=== PATIENT | male | born 1945 | race African-American/Black ===

== ENCOUNTER → 2018-11-10 | Outpatient (CLI) | payer OTHER ==
[~2018-11-10] VITALS: Ht 180.3 cm; Wt 88.0 kg
[~2018-11-10] MED LIST: ASPIRIN EC81 M1 PO; CRESTOR20 MG PO; EFFIENT10 MG PO; GABAPENTIN100 MG PO; GLUCOPHAGE500 MG PO; LIPITOR80 MG PO; MECLIZINE 25 MG25 M1 PO; NITROGLYCERIN0.4 MG; PROSCAR 5MG TABL5 MG PO; STOOL SOFTENER1 EAC2 PO; VITAMINC500 PO
[2018-11-10 08:05] VITALS: BP 128/70
[2018-11-10 08:15] LABS: HEMATOCRIT 44.6 % (42.0-52.0); HEMOGLOBIN 14.6 gm/dL (14.0-18.0); MCH 25.8 pg (26.0-34.0); MCHC 32.7 g/dL (28.0-37.0); MCV 78.9 fL (80.0-100.0); MPV 8.5 fl. (7.2-11.1); RBC 5.65 mil/uL (4.50-6.00); WBC 5.9 thou/uL (4.0-11.0)
[2018-11-10 08:21] LABS: ANION GAP 7 mmol/L (7-16); BUN 12 mg/dL (7-18); CALCIUM 8.7 mg/dL (8.5-10.1); CHLORIDE 105 mmol/L (98-107); CO2 26 mmol/L (21-32); CREATININE 1.3 mg/dL (0.6-1.3); GLUCOSE 116 mg/dL (70-99); POTASSIUM 4.1 mmol/L (3.5-5.1); SODIUM 138 mmol/L (136-145)
[2018-11-10 08:23] LABS: APTT 26.4 Seconds (25.0-31.3); PROTIME 10.4 Seconds (9.20-11.50)
[2018-11-10 08:25] LABS: ALBUMIN 3.6 g/dL (3.4-5.0); ALKALINE PHOSPHATASE 67 U/L (46-116); CHOLESTEROL 129 mg/dL (<200); HDL CHOLESTEROL 50 mg/dL (>40); LDL CHOLESTEROL 72 mg/dL (<100); SERUM ASSESSMENT Clear; SGOT 24 U/L (15-37); SGPT 23 U/L (30-65); TC:HDL 2.6 Ratio (Not establshd); TOTAL BILIRUBIN 0.6 mg/dL (<0.1-1.0); TOTAL PROTEIN 7.7 g/dL (6.4-8.2); TRIGLYCERIDE 36 mg/dL (<150); VLDL 7 mg/dL (<40)
--- NOTE | 2018-11-10 09:57 | EKG ---
[place] [address] ELECTROCARDIOGRAM REPORT Name: LANCE PARRISH Room: [facility]#: [id number] Admission: 11/10/18 Attend Phys: Cooper Tay MD, Discharge: Date of : 41 Report #: [id number] THIS REPORT FOR: //name// [facility] Test Date: 2018-11-10 Test Time: 08:54:33 Pat Name: LANCE PARRISH Department: Room: Gender: M Vehicle Assembly Inspector: BEKAH : 1945 Requested By: Cooper Tay Order Number: [id number] Rafa MD: David Dove Measurements Intervals [place] Rate: 56 P: 46 AL: 183 QRS: 19 QRSD: 102 T: 22 QT: 467 QTc: 451 Interpretive Statements Sinus rhythm Probable septal infarct, old Compared to ECG 04/10/2011 08:22:53 no change Electronically Signed On 11-10-2018 9:57:01 DEXIGRAPH OPERATOR by David Dove [email or web address] <ELECTRONICALLY SIGNED> By: David Dove MD, [facility] 11/10/18 0957 D: [id number] 3 David Dove MD, FACC /EPI
[2018-11-10 10:28] VITALS: BP 116/66
[2018-11-10 11:25] VITALS: BP 121/78
[2018-11-10 12:14] VITALS: BP 120/72
--- NOTE | 2018-11-10 12:42 | H ---
[address] [address] HISTORY AND PHYSICAL Name: LANCE PARRISH Room: [facility]#: [id number] Admission: 11/10/18 Attend Phys: Cooper Tay MD, Discharge: Date of : 41 Report #: [id number] THIS REPORT FOR: //name// CC: Cooper Tay Shavonne Ashby DATE OF SERVICE: 11/10/2018 HISTORY OF PRESENT ILLNESS: The patient is a very pleasant 73-year-old male with a history of coronary artery disease status post remote stenting of the LAD in 2005. Recently, he has noted dyspnea on exertion without concomitant chest discomfort. He maintains a relatively active lifestyle for his 73 years of age. He denies palpitations or dizziness. He is compliant with antiplatelet therapy with aspirin and atorvastatin as lipid-lowering therapy, 80 mg daily. PAST MEDICAL HISTORY: Remarkable for hypercholesterolemia. SOCIAL HISTORY: The patient is a nonsmoker. He is . PHYSICAL EXAMINATION: GENERAL: Demonstrates an acutely distressed elderly male. VITAL SIGNS: Blood pressure is 150/70, pulse rate is 74, respirations are 18 per minute. NECK: Jugular venous pressure is normal. CHEST: Clear. CARDIAC: Reveals normal first and second heart sounds with a soft systolic murmur. ABDOMEN: Soft. EXTREMITIES: Without edema with intact femoral, pedal and radial pulses. Recent stress echocardiogram revealed inferior hypokinesis, which was worsened after stress. IMPRESSION: 1. Coronary artery disease, status post remote stenting of the left anterior descending. 2. Abnormal stress echocardiogram. 3. Status post prior stenting of the left anterior descending. 4. Hypercholesterolemia. 5. [place] [address] HISTORY AND PHYSICAL Name: LANCE PARRISH Room: [facility]#: [id number] Admission: 11/10/18 Attend Phys: Cooper Tay MD, Discharge: Date of : 41 Report #: [id number] RECOMMENDATIONS: Given the aforementioned clinical scenario, I would recommend proceeding with cardiac catheterization to document the magnitude of coronary artery disease in the context of known coronary artery disease and recently abnormal stress echocardiogram. The procedure and risks have been discussed with the patient. <ELECTRONICALLY SIGNED> By: Cooper Tay MD, FACC 11/10/18 1242 1047 1055Jojohanna Tay MD, FACC /nt
--- NOTE | 2018-11-10 15:15 | CARD ---
[address] [address] CARDIAC CATH REPORT Name: LANCE PARRISH [id number] Admission: 11/10/18 Attend Phys: Cooper Tay MD, Discharge: Date of : 41 Report #: [id number] THIS REPORT FOR: //name// APPROVED REPORT Study performed: 11/10/2018 08:31:53 Patient Details Patient Status: Out-Patient Room #: The patient is a 73 year-old male Event Personnel Cooper Tay Office Worker, Maria Isabel Saldivar RN Journeyman Pipe Fitter, Ramone Hidalgo (R) Monitor, Adriana GuajardoIS Scrub Procedures Performed Left Heart Cath w/or w/o Coronaries, FFR Indication Positive stress test Risk Factors Hypercholesterolemia, Hypertension Previous Procedures/Diagnoses Previous PCI Procedure Narrative The patient was brought electively to the Cardiac Catheterization Laboratory and was prepped and draped in a sterile manner. The right femoral was infiltrated with 2% Lidocaine subcutaneous anesthesia. A Livingston 6 FR sheath was inserted into the right femoral artery. Coronary angiography was performed using coronary diagnostic catheters. The right coronary system was accessed and visualized with a Diagnostic JR 4 catheter. The left coronary system was accessed and visualized with a Diagnostic JL 5 catheter. The left ventricle was accessed and visualized with a Diagnostic Straight Pig catheter. Left ventricular/Aortic Valve gradient assessed via catheter pullback. Left ventriculogram was [facility] [address] [place] [address] CARDIAC CATH REPORT Name: LANCE PARRISH Room: [facility]#: [id number] Admission: 11/10/18 Attend Phys: Cooper Tay MD, Discharge: Date of : 41 Report #: [id number] performed in [place] projection. Pre-demployment femoral angiogram was performed . Closure device was deployed with a 6 Fr MynxGrip 6/7F. The patient tolerated the procedure well and there were no complications associated with the procedure. There was no hematoma. Intraoperative Conscious Sedation Sedation start time: 9:33 Case end Time: 10:16 Fentanyl 25 mcg Versed 2 mg Fluoro Time: 6.6 minutes Dose: DAP 50301 cGycm2 1181 mGy Contrast Type and Amount: Visipaque 220 ml Coronary Angiography The patient's coronary anatomy is right dominant. Diagnostic Cath Left Main 75% distal narrowing LAD 75% proximal LAD in-stent restenosis Circumflex 60% ostial and 40% mid vessel narrowing Right Coronary 70% very proximal narrowing and total occlusion at the acute margin with [id number] collaterals filling the distal right coronary artery Left Ventriculography The left ventricle is normal in size with normal contractility. The left ventricular ejection fraction is estimated to be 65%. Left ventricular wall motion abnormalities are not present. There is no mitral insufficiency. IVUS Anticoagulation was achieved with Heparin. Fractional Flow Strawberry was performed on the left main coronary artery, proximal left anterior descending artery segment vessel. A FFR wire was used. IVUS Findings 0.79 was the FFR measurement for the LM and LAD in series; value just distal to the left main and proximal to the LAD stenosis was 0.86 [place] [address] CARDIAC CATH REPORT Name: LANCE PARRISH Room: [facility]#: [id number] Admission: 11/10/18 Attend Phys: Cooper Tay MD, Discharge: Date of : 41 Report #: [id number] The aortic pressure is 124/61 mmHg with a mean of 86 mmHg. The left ventricular pressure is 127/4 mmHg with a mean of mmHg. The left ventricular end diastolic pressure is 7 mmHg. There was no gradient across the aortic valve upon pullback. PCI Technique Lesion Patient was preloaded with Heparin IV 8000 units. A 6FR XB 3.5 100CM Guide Catheter was used to engage the ostium. A Pressure Wire 175cm Interventional Guidewire was used to cross the lesion. PCI Technique Lesion The lesion stenosis prior to intervention was left main coronary artery, proximal left anterior descending artery segment% with MOOKIE flow. A FFR wire Interventional Guidewire was used to cross the lesion. BALLOON DILATION A Balloon catheter 0.79 was the FFR measurement for the LM and LAD in series; value just distal to the left main and proximal to the LAD stenosis was 0.86 was inserted and inflated up to kolby for seconds. Conclusion #1 significant coronary artery disease characterized by the following: A 75% distal left main coronary artery narrowing B 75% proximal LAD in-stent restenosis C 60% ostial circumflex narrowing with 40% mid vessel narrowing D 70% very proximal right coronary narrowing with total occlusion at the acute margin and [id number] collaterals filling the distal right coronary artery #2 normal left ventricular systolic function, estimate ejection fraction being 65% #3 normal left-sided hemodynamics study #4 fractional flow reserve was calculated pertinent to [place] [address] CARDIAC CATH REPORT Name: LANCE PARRISH Room: [facility]#: [id number] Admission: 11/10/18 Attend Phys: Cooper Tay MD, Discharge: Date of : 41 Report #: [id number] LAD lesions with a minimum value of 0.79 after adenosine provocation, suggesting hemodynamic significance; value distal to the left main and proximal to the LAD stenosis was 0.86. Recommendations Cardiac Risk Reduction Program Aggressive Medical Therapy CABG Diagnostic Cath Approved by: Cooper Tay MD Date/Time: 11/10/2018 11:35:25 <ELECTRONICALLY SIGNED> By: Cooper Tay MD, [facility] 11/10/18 1138 1138 [id number] Tay MD, FACC /INF
== END | disposition home or self-care (01) ==
LOC: M.CL 07:33
PROVIDERS: Internal Medicine
DX: I25.10 Atherosclerotic heart disease of native coronary artery without angina pectoris (principal); T85.898A Other specified complication of other internal prosthetic devices, implants and grafts, initial encounter; I25.82 Chronic total occlusion of coronary artery; I10 Essential (primary) hypertension; E78.00 Pure hypercholesterolemia, unspecified; E11.9 Type 2 diabetes mellitus without complications; Z88.0 Allergy status to penicillin; Z79.82 Long term (current) use of aspirin; Z79.891 Long term (current) use of opiate analgesic; Z79.899 Other long term (current) drug therapy; Z98.890 Other specified postprocedural states; Z95.5 Presence of coronary angioplasty implant and graft; Z79.01 Long term (current) use of anticoagulants